=== PATIENT | male | born 1975 ===

== ENCOUNTER 2017-01-27 08:41 | Emergency (ER) | payer OTHER ==
--- NOTE | 2017-01-27 10:13 | C.PDOC ---
History Of Present Illness Patient is a 41 yr old male c/o left knee pain x 8 days. Pt states that the pain started after he had jumped while at work. Pt has tried OTC medications but they are not helping much. Pt states the knee pain is worse when he bends the knee. There is no pain if lying flat. PMD: none . Time Seen by Provider: 01/27/17 09:08 Chief Complaint (Nursing): Lower Extremity Problem/Injury History Per: Patient History/Exam Limitations: no limitations Onset/Duration Of Symptoms: Days Current Symptoms Are (Timing): Still Present Past Medical History Reviewed: Historical Data, Nursing Documentation, Vital Signs Vital Signs: Last Vital Signs Temp 97.8 F 01/27/17 10:40 Pulse 47 L 01/27/17 10:40 Resp 16 01/27/17 10:40 BP 103/66 01/27/17 10:40 Pulse Ox 98 01/27/17 17:49 - Medical History PMH: No Chronic Diseases Family History: States: No Known Family Hx - Social History Hx Tobacco Use: No Hx Alcohol Use: Yes (occasional) Hx Substance Use: No - Immunization History Hx Tetanus Toxoid Vaccination: No Hx Influenza Vaccination: No Hx Pneumococcal Vaccination: No Review Of Systems Except As Marked, All Systems Reviewed And Found Negative. Constitutional: Negative for: Fever Respiratory: Negative for: Shortness of Breath Musculoskeletal: Positive for: Leg Pain Skin: Negative for: Bruising Neurological: Negative for: Weakness, Numbness Physical Exam - Physical Exam Appears: Well, Non-toxic, No Acute Distress Skin: Normal Color, Warm, Dry Nose: Normal Cardiovascular: Rhythm Regular Respiratory: Normal Breath Sounds Extremity: Normal ROM, No Tenderness, Other (no instability) Extremity: Bilateral: Atraumatic ED Course And Treatment O2 Sat by Pulse Oximetry: 98 (RA) Pulse Ox Interpretation: Normal - Other Rad X-Ray - Left Knee X-Ray: Viewed By Me, Read By Radiologist Interpretation: Left knee three views. History: Knee pain. Comparison: None available. Findings: Small suprapatellar joint effusion. No evidence for acute displaced fracture or dislocation. 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 Clinical correlation. Impression: Small suprapatellar joint effusion. No evidence for acute displaced fracture or dislocation. 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 Clinical correlation. If pain persists, consider MRI. Medical Decision Making Medical Decision Making: Initial Impression: Left knee strain r/o fx Initial Plan: Will get imaging Progress note: Pt feels better. No fx on xrays. Will d/c in knee immobilizer. . Disposition - Disposition Referrals: Kavon Car III, MD [Staff Provider] - Disposition: HOME/ ROUTINE Disposition Time: 10:28 Condition: FAIR Additional Instructions: Mr. Rivers, thank you for letting us take care of you today. Return to the ER if your symptoms worsen. Follow up with the orthopedic physician Dr. Kavon Car next week. Call his phone number listed below to make an appointment. Use the knee immobilizer as advised. Take the medication listed below as prescribed for pain. Prescriptions: Ibuprofen [Motrin Tab] 1 tab PO TID PRN #30 tab PRN Reason: Pain, Moderate (4-7) Instructions: Contusion in Adults (ED), Knee Pain (ED), Knee Immobilizer (ED) Forms: [employer] (Welsh) Print Language: CZECH - Clinical Impression Clinical Impression: Sprain of left knee
[2017-01-27 10:41] VITALS: BP 103/66; PULSE 47; RESP 16; TEMP 97.8
--- NOTE | 2017-01-27 10:57 | RAD ---
Left knee three views History: Knee pain. Comparison: None available. Findings: Small suprapatellar joint effusion. No evidence for acute displaced fracture or dislocation. 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 Clinical correlation. Impression: Small suprapatellar joint effusion. No evidence for acute displaced fracture or dislocation. 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 Clinical correlation. If pain persists, consider MRI.
[2017-01-27 17:49] VITALS: O2SAT 98
== END 2017-01-27 10:41 | disposition home or self-care (01) ==
LOC: C.ER 08:41
DX: S83.92XA Sprain of unspecified site of left knee, initial encounter (principal); X58.XXXA Exposure to other specified factors, initial encounter; Y93.39 Activity, other involving climbing, rappelling and jumping off; Y99.0 Civilian activity done for income or pay
CPT/HCPCS: 73562; 96372; 99284; J1885

== ENCOUNTER 2018-05-20 22:53 | Emergency (ER) | payer SELFPAY ==
[2018-05-20 23:03] VITALS: BP 150/92; PULSE 82; TEMP 99.8; O2SAT 96
[2018-05-20] MEDS ORDERED: Neomycin/Polymyxin/Hydrocort Otic Soln BOTTLE AU STA (23:22)
--- NOTE | 2018-05-20 23:52 | C.PDOC ---
History Of Present Illness 42 year old male presents with right ear ache for the past 1 week that worsened today. Patient noticed some blood in the ear after cleaning it today. Denies headache, dizziness, or sore throat. Time Seen by Provider: 05/20/18 23:07 Chief Complaint (Nursing): ENT Problem History Per: Patient History/Exam Limitations: None Onset/Duration Of Symptoms: Days Current Symptoms Are (Timing): Worse Quality (Ear): Other (Right ear ache) Symptoms Have Been: Continuous Past Medical History Reviewed: Historical Data, Nursing Documentation, Vital Signs Vital Signs: Last Vital Signs Temp 99.8 F H 05/20/18 23:01 Pulse 82 05/20/18 23:01 Resp 16 05/20/18 23:01 BP 150/92 H 05/20/18 23:01 Pulse Ox 96 05/20/18 23:01 Family History: States: Unknown Family Hx - Social History Hx Tobacco Use: No Hx Alcohol Use: Yes (occasional) Hx Substance Use: No - Immunization History Hx Tetanus Toxoid Vaccination: No Hx Influenza Vaccination: No Hx Pneumococcal Vaccination: No Review Of Systems Constitutional: Negative for: Fever, Chills ENT: Positive for: Ear Pain. Negative for: Throat Pain Respiratory: Negative for: Cough Skin: Negative for: Rash Neurological: Negative for: Headache, Dizziness Physical Exam - Physical Exam Appears: Non-toxic Skin: Normal Color, Warm, Dry Head: Atraumatic, Normacephalic Eye(s): bilateral: Normal Inspection Ear(s): Left: Normal, Right: Other (Right tragal tenderness, erythema of canal. TM normal, no effusion, no active bleeding.) Nose: Normal Oral Mucosa: Moist Throat: Normal, No Erythema, No Exudate Neck: Normal, No Midline Cervical Tenderness, No Paracervical Tenderness, Supple Neurological/Psych: Oriented x3, Normal Speech ED Course And Treatment O2 Sat by Pulse Oximetry: 96 (Room air) Pulse Ox Interpretation: Normal Progress Note: Motrin and cortisporin drops administered. Patient resting comfortably in no acute distress, vitals are stable, will discharge home with Rx and instructions to follow up with PMD. Disposition Counseled Patient/Family Regarding: Diagnosis, Need For Followup, Rx Given - Disposition Referrals: [facility] [Outside] Disposition: HOME/ ROUTINE Disposition Time: 23:50 Condition: STABLE Additional Instructions: Use medications as directed( Ponga 4 gottas en el oido derecho 3 veces al dixon Motri por dolor Regresa si la elayne se hincha, fiebre nereida or dolor terrible de oido o de delaney o peor Prescriptions: Ibuprofen [Motrin] 600 mg PO Q6H #30 tab Instructions: Outer Ear Infection (DC) Forms: [employer] (Mongolian) - Clinical Impression Clinical Impression: Otitis externa - PA / SUPERVISOR MARBLE / Resident Statement MD/DO has reviewed & agrees with the documentation as recorded. - Scribe Statement The provider has reviewed the documentation as recorded by the Scribe Edwin Diallo All medical record entries made by the Scribe were at my direction and personally dictated by me. I have reviewed the chart and agree that the record accurately reflects my personal performance of the history, physical exam, medical decision making, and the department course for this patient. I have also personally directed, reviewed, and agree with the discharge instructions and disposition.
[2018-05-20 23:58] VITALS: RESP 20
== END 2018-05-20 23:57 | disposition home or self-care (01) ==
LOC: C.ER 22:53
DX: H60.91 Unspecified otitis externa, right ear (principal)